=== PATIENT | male | born 1960 | race Caucasian/White ===

== ENCOUNTER 2018-01-28 12:10 | Emergency (ER) | payer OTHER ==
[~2018-01-28] VITALS: Ht 182.9 cm; Wt 88.0 kg
[2018-01-28 12:14] VITALS: Ht 182.9 cm; Wt 88.0 kg
[2018-01-28 17:32] VITALS: BP 146/98
== END 2018-01-28 17:32 | disposition home or self-care (01) ==
LOC: ED 12:10
DX: S60.457A Superficial foreign body of left little finger, initial encounter (principal); Z88.6 Allergy status to analgesic agent; Z88.5 Allergy status to narcotic agent; W45.8XXA Other foreign body or object entering through skin, initial encounter; Y93.89 Activity, other specified; Y92.89 Other specified places as the place of occurrence of the external cause; Y99.8 Other external cause status
CPT/HCPCS: 90715; J0690; J2001; Q0092